=== PATIENT | female | born 1955 | race Caucasian/White ===

== ENCOUNTER 2018-04-30 07:42 | Day surgery (SDC) | payer OTHER | END 2018-04-30 10:50 | disposition home or self-care (01) | LOC: AMB-ENDOS 07:42 → CIR.AMB 13:15 | DX: R19.4 Change in bowel habit (principal); Z86.010 Personal history of colon polyps; K64.1 Second degree hemorrhoids; Z12.11 Encounter for screening for malignant neoplasm of colon ==